=== PATIENT | male | born 1945 ===

== ENCOUNTER 2024-10-06 23:15 | Emergency (ER) | payer MEDICARE, OTHER ==
[~2024-10-06] VITALS: Ht 185.4 cm; Wt 106.0 kg
[2024-10-06 23:18] VITALS: BP 0/0; PULSE 0; RESP 0; O2SAT 99
[2024-10-06] MEDS ORDERED: EPINEPHrine 1:10,000 [1 MG/10 ML] SYRINGE IVP ONE (23:26)
== END 2024-10-07 04:38 ==
LOC: EMS 23:25
DX: I46.9 Cardiac arrest, cause unspecified (principal)
CPT/HCPCS: 99285; J0171